=== PATIENT | female | born 1940 | race Caucasian/White ===

== ENCOUNTER 2017-02-25 07:30 | Inpatient (IN) ==
[~2017-02-25 07:30] MED LIST: ACETAMINOPHEN 500 MG TABLET PO ONE; DEXAMETHASONE 4 MG/ML INJECTION IVP ONE; FAMOTIDINE PB 20 MG/50 ML BAG IV ONE; LIDOCAINE 1% (10mg/ml) 2mL INJ PF SDV ID ONE; MELOXICAM 15 MG TABLET PO ONE; METOCLOPRAMIDE 10mg/2ml INJECTION IVP ONE; NOZIN NASAL SWAB NAS ONE; ONDANSETRON 4 MG/2 ML INJECTION IVP ONE; TRANEXAMIC ACID 1,000 MG in NS 100 ML IV ONE
[2017-02-25] MEDS ORDERED: EPINEPHrine PF 0.25 MG, BUPIVACAINE 0.25% PF 30 ML, MORPHINE SULFATE 15 MG, KETOROLAC I... OPSITE ONE (08:00)
[2017-02-25 08:09] VITALS: BMI 18.9
[2017-02-25] MEDS ORDERED: CEFAZOLIN 1 G INJECTION IVP ONE (08:22)
[2017-02-25] MEDS: LR 1,000 ML IV SCH ×2 (08:41→10:56)
--- NOTE | 2017-02-25 09:18 | Anesthesia Preoperative Report ---
Anesthesia Preoperative Record - Date and Time Date: 02/25/17 Preoperative Diagnosis: RT TKA M17.11 NPO Since Date: 02/24/17 NPO Since Time: 20:00 Allergies/Adverse Reactions: Allergies Allergy/AdvReac Type Severity Reaction Status Date / Time No Known Drug Allergies Allergy Unknown Verified 02/25/17 08:18 - Vital Signs Vital Signs: Temperature 97.9 F 02/25/17 08:09 Pulse Rate 74 02/25/17 09:01 Respiratory Rate 18 02/25/17 08:09 Blood Pressure 142/73 H 02/25/17 09:01 Pulse Oximetry 94 02/25/17 08:09 Height and Weight: Height 1.65 m Weight 51.7 kg Body Mass Index 18.9 - Medications Inpatient Medications: Current Medications Lactated Ringer's (Lactated Ringers) 1,000 mls @ 50 mls/hr IV .Q20H LEXIS Last Admin: 02/25/17 08:41 Dose: 50 mls/hr Epinephrine HCl 0.25 mg/Bupivacaine HCl 30 ml/Morphine Sulfate 15 mg/Ketorolac Tromethamine 60 mg/Sodium Chloride 65.25 mls @ 1 mls/hr OPSITE INTRAOP ONE PRN Reason: Protocol Stop: 02/28/17 01:14 Sodium Chloride (Iv Flush) 10 - 80 ml IV PRN PRN PRN Reason: Flushing Home Medications: Home Medications Medication Instructions Recorded Confirmed Type Coreg (carvedilol) 3.125 mg tablet 3.125 mg PO BID #0 tab 10/03/16 02/25/17 History Xanax (alprazolam) 0.25 mg tablet 0.25 mg PO BID PRN 10 Days tab 10/03/1602/25 History Naproxen Sodium [Aleve] 220 mg PO DAILY PRN 01/20/17 02/25/17 History Advil PM (Ibuprofen 200 1 tab PO HS PRN tab 02/13/17 02/25/17 History mg-diphenhydramine [id number] mg tablet) Acetaminophen [Tylenol] 1 - 2 tab PO Q5H PRN 02/24/17 02/25/17 History Multivit-Min/Iron/Folic/Lutein 1 tab PO DAILY 02/25/17 02/25/17 History [Centrum Silver Women Tablet] Is Patient on Beta Stephen?: Yes Beta Stephen Last Dose Date/Time: 02/25/17 @ 0730 - Medical History Cardiovascular: Reports: Arrhythmia (history of PAC's ), Hypertension - Surgical History HEENT Surgeries: Reports: Tonsillectomy, Other (wears glasses) GI Surgery/Treatments: Reports: Appendectomy, Colonoscopy (5-10 years ago) Musculoskeletal Surgery/Tx: Reports: Total Knee Replacement (Left partial , 2006 ) Anesthesia Reactions: None Hx Family Anesthesia Reaction: No History of Motion Sickness: No - Social History Smoking Status: Never smoker Hx Chewing Tobacco Use: No Second Hand Exposure: No Substance Use Type: does not use Alcohol Intake Frequency: does not drink - Pertinent Findings EKG: Sinus Rhythm - Physical Exam Respiratory Exam: Present: lungs clear, bilateral breath sounds equal Cardiovascular Exam: Present: regular rate and rhythm - Airway Assessment Mallampati Score: I TMD: 3 Fingerbreadths Neck Extension: fair (grade 2) Overall Assessment: no airway concerns - ASA ASA Score: 2 - Plan Anesthesia: General TIVA, General Inhalation Gases, Neuroaxial Regional/Trunk Block: Spinal Peripheral Nerve Block: Saphenous-Right - Discussion Discussion: Discussed risks/options/alternatives of anesthesia and questions answered. Patient consents. Nursing pain assessment noted. Present for Discussion: family member Attestation Statement: Prior to the delivery of any anesthetic medication, I examined the patient, developed the plan, obtained the patient's consent and discussed the risk and benefits of the procedure with the patient/guardian. - Additional Information Seen by Anesthesia: Yes
[2017-02-25] MEDS ORDERED: FentaNYL 100 MCG/2 ML INJECTION ONE (09:25)
[2017-02-25] MEDS ORDERED: MIDAZOLAM 2mg/2ml INJECTION ONE (09:26)
[2017-02-25] MEDS ORDERED: PROPOFOL 500 MG/50 ML VIAL IV ONE (09:26)
[2017-02-25] MEDS ORDERED: VANCOMYCIN 1,000 MG INJECTION ONE (09:29)
[2017-02-25] MEDS ORDERED: VANCOMYCIN 1,000 MG INJECTION IAR ONE (10:43)
--- NOTE | 2017-02-25 11:51 | Operative Note ---
- Procedure Preoperative Diagnosis: Right knee primary degenerative joint disease Postoperative Diagnosis: Same as preoperative diagnosis. Surgeon: Catie Duarte MD Asphalt Distributor Operator: Brooks Brooks Complications: None. Anesthesia: Spinal. Estimated Blood Loss: See Anesthesia Record. Fluids: Please see Anesthesia Record. Description of Procedure: Mrs. Stauffer and her right knee were identified and marked in the preoperative holding area. She was brought back to the operating suite after a saphenous nerve block was placed in the preoperative holding area. Spinal anesthetic was administered and she was placed supine on the operating table. The right lower extremity was prepped and draped in my normal sterile fashion. Timeout was performed. The [employer] robot was used during the surgery. She had a fixed varus deformity with no flexion contracture. A standard anterior midline incision followed by medial parapatellar arthrotomy was performed. Anterior fat pad and meniscus were removed. The patella was resurfaced to a size 29. Tibial and femoral arrays were placed both within the original incision. Checkpoints were then placed both in the femur and the tibia. The bone was then registered with the [employer] robot. Osteophytes were removed and gaps were captured both 90 and 0 with correction. [employer] robotic software was used to adjust the component to obtain 18 mm gaps throughout. The [employer] robotic arm was then used to assist with the bone cuts. Posterior osteophytes and remaining meniscus were removed. Trial components were placed. We used a 3 femur and a 2 tibia with a 11 mm spacer. She was tight only in flexion medially. A partial PCL release was performed followed by crusting of the MCL with an 18-gauge needle which even her out. She tracked well and was well balanced throughout range of motion. The leg was exsanguinated and the tourniquet inflated to 250 mmHg. The bone was prepared for cementing and components were cemented into place and allowed to cure in extension. The tourniquet was let down and hemostasis obtained with electrocautery. The knee was ranged one more time to ensure good stability, balance and patellar tracking. 1 g of vancomycin powder was then placed into the knee joint. The capsulotomy was then closed with #1 Vicryl. I then left my child nutrition assistant to close the subcutaneous tissue with 2-0 Vicryl. Running 4-0 Monocryl will be used in the subcuticular layer. Dermabond will be used on the skin followed by sterile dressing. After drapes are removed patient will be taken to recovery room under the care of anesthesia.
[2017-02-25] MEDS ORDERED: ROPIVACAINE 0.5% (5mg/ml) 30ml INJ ONE (12:11)
--- NOTE | 2017-02-25 12:48 | Anesthesia Procedure Note ---
Peripheral Nerve Blockade - Procedure Physician: Brennen Duarte MD Date: 02/25/17 Surgical Procedure: Right TKA Discussion: Discussed risks/options/alternatives of anesthesia and questions answered. Patient consents. Nursing pain assessment noted. Block Start: 12:14 Block Stop: 12:16 Blocked Employed: Adductor Canal Indication: Post-Operative Pain Approach: Right Side Confirmed Position: Supine Patient: Consent, Risks/Benefits Discussed, Informed, Post Block Act. Discussed IV Sedation: No (spinal intact) Initial Vital Signs: Temperature 97.9 F 02/25/17 08:09 Temperature Source Oral 02/25/17 08:09 Pulse Rate 87 02/25/17 08:09 Respiratory Rate 18 02/25/17 08:09 Blood Pressure 185/88 H 02/25/17 08:09 Blood Pressure Mean 120 02/25/17 08:09 Blood Pressure Position Sitting 02/25/17 08:09 Pulse Oximetry 94 02/25/17 08:09 Oxygen Delivery Method 02/25/17 08:09 Post Vital Signs: Temperature 97.2 F 02/25/17 12:07 Pulse Rate 67 02/25/17 12:35 Respiratory Rate 15 02/25/17 12:35 Blood Pressure 114/87 02/25/17 12:35 Pulse Oximetry 98 02/25/17 12:35 Initial Pain Pain Score: 0 Post Block Pain Score: 0 Prep: Chlorhexadine/ETOH Ultrasound Used?: Yes - Injectate Ropivacaine (%): 0.5 Ropivacaine (mL): 10 Was Epi 1:200,000 Used?: No Injection: Injection made incrementally with constant monitoring and aspiration every ml
--- NOTE | 2017-02-25 12:49 | Anesthesia Postoperative Note ---
- Date and Time Date: 02/25/17 Time: 12:48 - Status Patient Participated in Evaluation: Patient Participated in Person Vital Signs: Temperature 97.2 F 02/25/17 12:07 Pulse Rate 68 02/25/17 12:45 Respiratory Rate 16 02/25/17 12:45 Blood Pressure 131/76 02/25/17 12:45 Pulse Oximetry 96 02/25/17 12:45 Respiratory Function: Airway Patent, Regular Respirations Cardiovascular Function: Regular Pulse EKG: Sinus Rhythm Mental Status: Alert and Oriented Pain Intensity: 0 Hydration: IV Infusing Complications During Recover: None Apparent - Follow-Up Instructions Instructions: Per Surgeon
--- NOTE | 2017-02-25 13:01 | XRay Report ---
Indication: postoperative image PROCEDURE: XR knee RT 2V: Encounter: Initial Comparison: January 20, 2017 Findings: Postoperative changes of right total knee replacement are seen. There is expected postoperative subcutaneous gas. No evidence of hardware failure or acute fracture. No retained radiopaque surgical instruments or sponges. Overlying material causing artifact. Impression: New right total knee prosthesis without evidence of immediate complication. .
[2017-02-25] MEDS ORDERED: ONDANSETRON 4 MG/2 ML INJECTION IVP PRN (14:26)
[2017-02-25] MEDS ORDERED: LORazepam 1 MG TABLET PO PRN (14:26)
[2017-02-25] MEDS ORDERED: NOZIN NASAL SWAB NAS ONE (14:26)
[2017-02-25] MEDS ORDERED: DiphenhydrAMINE 25 MG CAPSULE PO PRN (14:26)
[2017-02-25] MEDS ORDERED: NAPROXEN 220 MG TABLET PO PRN (14:26)
[2017-02-25] MEDS ORDERED: DiphenhydrAMINE 50 MG/ML INJECTION IVP PRN (14:26)
[2017-02-25] MEDS ORDERED: TRAMADOL 50 MG TABLET PO PRN (14:26)
[2017-02-25] MEDS: ACETAMINOPHEN 325 MG TABLET PO SCH ×3 (14:37→21:57)
[2017-02-25] MEDS: NS 1,000 ML IV SCH (14:38)
[2017-02-25] MEDS: NOZIN NASAL SWAB NAS SCH ×2 (14:38→21:57)
[2017-02-25] MEDS ORDERED: SALINE FLUSH 10ml SYRINGE IV PRN (15:20)
[2017-02-25 15:55] VITALS: RESP 16
[2017-02-25] MEDS: CEFAZOLIN 2 G in NS 100 ML IV SCH (16:59)
[2017-02-25] MEDS: DEXAMETHASONE 4 MG/ML INJECTION IVP SCH (17:27)
[2017-02-25] MEDS ORDERED: DEXAMETHASONE 4 MG TABLET PO SCH (18:00)
[2017-02-25] MEDS ORDERED: SENNOSIDES 8.6 MG TABLET PO SCH (21:00)
[2017-02-25] MEDS: DOCUSATE SODIUM 100 MG CAPSULE PO SCH (21:57)
[2017-02-25] MEDS: ASPIRIN *EC* 81 MG TABLET PO SCH (21:57)
[2017-02-26] MEDS: DEXAMETHASONE 4 MG/ML INJECTION IVP SCH (02:00)
[2017-02-26] MEDS: CEFAZOLIN 2 G in NS 100 ML IV SCH (02:01)
[2017-02-26] MEDS: NS 1,000 ML IV SCH (05:17)
[2017-02-26] MEDS: NOZIN NASAL SWAB NAS SCH ×2 (05:17→13:26)
--- NOTE | 2017-02-26 08:14 | Orthopedic Progress Note ---
Date: Subjective/Severity of Illness: Pain is controlled. No CP or breathing issues. She has been mobile with good tolerance. Pt expects discharge later today. Orthopedic Objective PO Vital signs: Temperature 96.2 F L 02/26/17 07:15 Pulse Rate 71 02/26/17 07:15 Respiratory Rate 16 02/26/17 07:15 Blood Pressure 134/72 02/26/17 07:15 Pulse Oximetry 95 02/26/17 07:15 Height and Weight: Height 5 ft 5 in Weight 121 lb 7.595 oz Body Mass Index 18.9 - Constitutional General Appearance: Present: alert, no acute distress - Respiratory Exam Present: non-labored - Extremities Exam Extremities: Present: pulses intact. Absent: calf tenderness - Surgical Site Incision: Mepilex dressing intact, no drainage - Integumentary Exam Present: pink, warm, dry - Neurological Exam Present: intact to light touch, no deficits - Psychiatric Exam Present: alert, normal affect - Labs Result Diagrams: 02/26/17 04:00 02/26/17 04:00 Abnormal lab results 02/26/17 02/26/17 Range/Units 04:00 04:00 WBC 11.9 H (4.5-11.0) T/MM3 RBC 3.94 L (4.00-5.20) M/MM3 Potassium 3.5 L (3.6-5) MEQ/L Chloride 113 H (98-107) MEQ/L Creatinine 0.5 L (0.7-1.2) MG/DL Glucose 119 H (65-110) MG/DL H & H 02/26/17 Range/Units 04:00 Hgb 12.4 (12-16) GM/DL Hct 37.6 (36-46) % Orthopedic Assessment and Plan (1) Primary osteoarthritis of right knee Status: Acute Assessment and Plan: Current anti-coagulation protocol for VTE prophylaxis. SCD's. PT/OT services to improve independent function. Discharge Planning per Case Management. - Anticoagulation Therapy Anticoagulation: ASA 81 mg PO BID x6 weeks Hospital Course Summary Disclaimer: The visit summary below is not to be considered part of the above Progress Note.
[2017-02-26] MEDS: ACETAMINOPHEN 325 MG TABLET PO SCH ×2 (08:52→13:25)
[2017-02-26] MEDS: DOCUSATE SODIUM 100 MG CAPSULE PO SCH (08:52)
[2017-02-26] MEDS: ASPIRIN *EC* 81 MG TABLET PO SCH (08:52)
[2017-02-26] MEDS ORDERED: POLYETHYL GLYCOL 3350 17gm PACKET PO SCH (09:00)
[2017-02-26] MEDS ORDERED: INFLUENZA VAC High Dose 2017-18 (Fluzone HD*) (>=65yo) 0.5ml IM ONE (11:51)
[2017-02-26 11:53] VITALS: BP 141/67; PULSE 69; TEMP 98.1; O2SAT 98
[2017-02-26] MEDS ORDERED: INFLUENZA VAC. INJ. ADMIN CHARGE INJ ONE (11:55)
[2017-02-26] MEDS ORDERED: SENNOSIDES 8.6 MG TABLET PO PRN (11:58)
--- NOTE | 2017-02-26 15:31 | Discharge Summary ---
Orthopedic Discharge Info Date of admission: 02/25/17 07:53 Primary care physician: Azael Delgado MD Attending Physician: Brennen Duarte MD Consults: 02/25/17 07:59 Consult to Anesthesiology [CONS] Routine Consulting Provider: MARISOL Cabrera Reason For Exam: Preoperative Assessment 02/25/17 14:26 Case Management Consult [CONS] Routine Reason For Exam: Discharge Planning DME-Walker [CONS] Routine Height: 5 ft 5 in Weight: 113 lb 15.664 oz Comment: change dressing in 2 weeks Total Joint Outpatient Therapy [CONS] Routine Comment: change dressing in 2 weeks - Discharge Diagnosis (1) Primary osteoarthritis of right knee Status: Acute - Procedures Procedures: Procedures Total knee replacement (07/11/08) - Laboratory Result Diagrams: 02/26/17 04:00 02/26/17 04:00 Laboratory: Abnormal lab results 02/26/17 02/26/17 Range/Units 04:00 04:00 WBC 11.9 H (4.5-11.0) T/MM3 RBC 3.94 L (4.00-5.20) M/MM3 Potassium 3.5 L (3.6-5) MEQ/L Chloride 113 H (98-107) MEQ/L Creatinine 0.5 L (0.7-1.2) MG/DL Glucose 119 H (65-110) MG/DL H & H 02/26/17 Range/Units 04:00 Hgb 12.4 (12-16) GM/DL Hct 37.6 (36-46) % Orthopedic Discharge HPI - HPI Comments This patient was admitted for elective surgical tx of end stage degenerative joint disease that failed to respond to conservative treatment. Further details of this is found in the admission H&P. Orthopedic Hospital Course Hospital course: 02/26/17 15:30 After appropriate preoperative clearance and signing of operative consent, the patient was given IV antibiotics, according to orthopedic protocol. The patient was taken to the operating room and underwent elective joint arthroplasty. Following surgery, antibiotics were discontinued less than 24 hours according to joint protocol. Appropriate anticoagulants were initiated and SCDs added for DVT prevention. The dressing was clean, dry, and intact. Pain control was obtained via multimodal approach. Bowel motivation addressed with scheduled and PRN medications. Early mobilization was initiated through PT services. Discharge arrangements made by a collaborative effort between the patient and Case Management. Follow-up is scheduled in 2-3 weeks. Discharge instructions given by orthopedic providers and nursing staff at discharge. Discharge condition was good. Ongoing care required?: No - Leukocytosis due to preoperative IV Decadron Discharge Plan - Med Rec/Dispo Referrals/Follow Up: Brennen Duarte MD [Physician] - 03/19/17 8:45 am [facility] Instructions: [facility] Postop Instructions Additional Instructions: [facility] ON 02/27/2017 AT 2:00PM FOR PHYSICAL THERAPY EVAL. THE EVAL IS SCHEDULED AT THE [facility]. ALL OTHER APPOINTMENTS WILL BE SCHEDULED AT THE [facility]. PHONE [phone] Prescriptions: New Acetaminophen [Tylenol] 650 mg PO QID #100 tab Aspirin *EC* [Ecotrin] 81 mg PO BID #84 tab Tramadol [Ultram] 50 - 100 mg PO Q6H PRN #60 tab PRN Reason: Pain Naproxen [Aleve] 440 mg PO BID PRN #60 tab PRN Reason: Pain Continue Multivit-Min/Iron/Folic/Lutein [Centrum Silver Women Tablet] 1 tab PO DAILY Discontinued Naproxen Sodium [Aleve] 220 mg PO DAILY PRN PRN Reason: Pain Acetaminophen [Tylenol] 1 - 2 tab PO Q5H PRN PRN Reason: Pain Advil PM (Ibuprofen 200 mg-diphenhydramine [id number] mg tablet) 1 tab PO HS PRN tab PRN Reason: Sleep - Disposition 01 Discharged Home, Self-Care
[2017-02-27] MEDS ORDERED: BISACODYL 10 MG SUPPOSITORY RECTALLY SCH (20:00)
== END 2017-02-26 15:10 | disposition home or self-care (01) | DRG 470 ==
LOC: SRG 07:53
PROVIDERS: ADMIT Orthopaedic Surgery; ATTEND Orthopaedic Surgery